=== PATIENT | male | born 1965 | race Caucasian/White ===

== ENCOUNTER 2018-01-10 12:10 | Emergency (ER) | payer SELFPAY ==
[2018-01-10 13:15] LABS: PLATELET COUNT 258 10^3/uL (150-400)
--- NOTE | 2018-01-10 13:28 | EDPHY ---
H & P Time Seen by Provider: 01/10/18 13:28 HPI/ROS: Chief complaint. High blood pressure HPI. 52-year-old male with history of hypertension. His blood pressure medication for years ago when lost health insurance. He was taking lisinopril previously without any side effects. The patient is [employer] and the classmate were taking each other's blood pressure and he found to have a high blood pressure today. He has no symptoms with this. He denies headache, chest pain, shortness of breath, visual change. ROS Constitutional. no fever/chills, no weakness Eyes. no problems with vision ENT. no sore throat, no nasal drainage Cardiovascular. no chest pain Respiratory. no shortness of breath, no cough Abdominal. no abdominal pain, no nausea/vomiting, no diarrhea . no problems urinating MS. no calf pain/swelling, no neck/back pain, no joint pain Skin. no rash Lymph. no swollen glands Neuro. no headache, no dizziness, no difficulty walking or with speech Past Medical/Surgical History: Hypertension Social History: Single, nonsmoker, no alcohol Smoking Status: Never smoked Physical Exam: General Appearance: Alert well-developed male mild distress vital signs are significant for blood pressure 185/102 and then recheck 187/126 Eyes: Pupils equal and round no pallor or injection. ENT, Mouth: Mucous membranes are moist. Respiratory: There are no retractions, lungs are clear to auscultation. Cardiovascular: Regular rate and rhythm. Gastrointestinal: Abdomen is soft and nontender, no masses, bowel sounds normal. Neurological: Awake and alert, sensory and motor exams grossly normal. Skin: Warm and dry, no rashes. Musculoskeletal: Neck is supple nontender. Extremities symmetrical, full range of motion. Psychiatric: Patient is oriented X 3, there is no agitation. Constitutional: Initial Vital Signs Temperature (C) 37.1 C 01/10/18 12:13 Heart Rate 79 01/10/18 12:13 Respiratory Rate 17 01/10/18 12:13 Blood Pressure 185/102 H 01/10/18 12:13 O2 Sat (%) 96 01/10/18 12:13 O2 Delivery Mode Room Air Allergies/Adverse Reactions: No Known Allergies Allergy (Unverified 01/10/18 12:13) Home Medications: Medication Instructions Recorded Lisinopril 10 mg PO DAILY #20 tablet 01/10/18 Medical Decision Making Procedures: IV normal saline, monitor ED Course/Re-evaluation: Re-evaluation and patient is stable. He and I discussed treatment plan including criteria for return importance of follow-up and further evaluation. He expresses understanding and agreement Differential Diagnosis: Essential hypertension without complications or evidence for end-organ damage - Data Points Laboratory Results: Laboratory Results 01/10/18 12:47 01/10/18 12:47 01/10/18 01/10/18 12:47 12:47 WBC 6.43 10^3/uL 10^3/uL (3.80-9.50) RBC 5.24 10^6/uL 10^6/uL (4.40-6.38) Hgb 15.5 g/dL g/dL (13.7-17.5) Hct 46.1 % % (40.0-51.0) MCV 88.0 fL fL (81.5-99.8) MCH 29.6 pg pg (27.9-34.1) MCHC 33.6 g/dL g/dL (32.4-36.7) RDW 13.2 % % (11.5-15.2) Plt Count 258 10^3/uL 10^3/uL (150-400) MPV 10.2 fL fL (8.7-11.7) Neut % (Auto) 67.2 % % (39.3-74.2) Lymph % (Auto) 21.0 % % (15.0-45.0) [place] % (Auto) 9.2 % % (4.5-13.0) Eos % (Auto) 1.4 % % (0.6-7.6) Baso % (Auto) 0.6 % % (0.3-1.7) Nucleat RBC Rel Count 0.0 % % (0.0-0.2) Absolute Neuts (auto) 4.32 10^3/uL 10^3/uL (1.70-6.50) Absolute Lymphs (auto) 1.35 10^3/uL 10^3/uL (1.00-3.00) Absolute Monos (auto) 0.59 10^3/uL 10^3/uL (0.30-0.80) Absolute Eos (auto) 0.09 10^3/uL 10^3/uL (0.03-0.40) Absolute Basos (auto) 0.04 10^3/uL 10^3/uL (0.02-0.10) Absolute Nucleated RBC 0.00 10^3/uL 10^3/uL (0-0.01) Immature Gran % 0.6 % % (0.0-1.1) Immature Gran # 0.04 10^3/uL 10^3/uL (0.00-0.10) Sodium 143 mEq/L mEq/L (135-145) Potassium 4.6 mEq/L mEq/L (3.3-5.0) Chloride 103 mEq/L mEq/L (97-110) Carbon Dioxide 29 mEq/l mEq/l (22-31) Anion Gap 11 mEq/L mEq/L (8-16) BUN 17 mg/dL mg/dL (7-23) Creatinine 0.9 mg/dL mg/dL (0.7-1.3) Estimated GFR > 60 Glucose 100 mg/dL mg/dL (70-100) Calcium 9.3 mg/dL mg/dL (8.5-10.4) Total Bilirubin 0.5 mg/dL mg/dL (0.1-1.4) AST 25 IU/L IU/L (17-59) ALT 48 IU/L IU/L (21-72) Alkaline Phosphatase 86 IU/L IU/L (38-126) Total Protein 7.0 g/dL g/dL (6.3-8.2) Albumin 4.2 g/dL g/dL (3.5-5.0) Departure - Departure Disposition: Home, Routine, Self-Care Clinical Impression: Hypertension Qualifiers: Hypertension type: essential hypertension Qualified Code(s): I10 - Essential ( primary) hypertension Condition: Good Instructions: Hypertension (ED) Additional Instructions: Lisinopril daily. Return for worsening symptoms. Re-evaluation in about 1 week to have blood pressure retaken and possible medication change to get blood pressure in healthy range Referrals: NONE *PRIMARY CARE P,. [Primary Care Provider] - As per Instructions MARVIN SIERRA [Medical Doctor] - As per Instructions [facility] [Outside] - 5-7 days, call for appt. Prescriptions: Lisinopril 10 mg PO DAILY #20 tablet
[2018-01-10 13:53] VITALS: BP 177/98
== END 2018-01-10 13:52 | disposition home or self-care (01) ==
DX: I10 Essential (primary) hypertension (principal)